=== PATIENT | female | born 1945 | race Caucasian/White ===

== ENCOUNTER 2018-12-29 15:42 | Inpatient (IN) | payer MEDICARE, OTHER ==
[~2018-12-29] VITALS: Ht 172.7 cm; Wt 76.0 kg
--- NOTE | 2018-12-29 20:19 | NUR ---
REPORT RECEIVED FROM PHOTOGRAPH TINTER CHELA. PT ARRIVES VIA STRETCHER WITH DEE DOE. PRN PAIN MEDICATION ADMINISTERED IV. PT REPORTS PAIN 5-7/10 WITH MOVEMENT IN RIGHT HIP. "NOT MUCH PAIN AT REST". PULSES STRONG BLE. SENSATION AND MOVEMENT INTACT. LIMITED MOBILITY RIGHT HIP. PT TRANSERRED TO BED WITH FOUR NURSING STAFF ASSIST. VS COMPLETE. CALL LIGHT IN REACH. ORIENTATION TO ROOM PROVIDED.
--- NOTE | 2018-12-29 20:39 | NUR ---
PHONE CALL TO DR. CLEMENT. TELEPHONE ORDERS RECEIVED, REPEATED BACK. ORDER TO PLACE SAMIR ANGUIANO AT MIDNIGHT, REPEATED BACK.
--- NOTE | 2018-12-29 21:18 | NUR ---
IN PT ROOM FOR ANGUIANO CATHETER INSERTION. EDUCATION PROVIDED. PT DENIES KNOWN ALLERGIES. ANGUIANO PLACED WNL, DRAINING CLEAR YELLOW URINE. PRN MORPHINE ADMINISTERED FOR 6-7/10 HIP PAIN. IVF INFUSING WNL ORDERED. CALL LIGHT IN REACH. LIGHTS OFF IN ROOM. ICE WATER IN REACH.
--- NOTE | 2018-12-29 23:16 | NUR ---
CHECKED ON PT. RESTING IN BED WITH EYES CLOSED, SNORING. BREATHING NON-LABORED. LIGHTS OFF IN ROOM. IVF INFUSING ORDERED. ANGUIANO DRAINING WNL.
--- NOTE | 2018-12-30 01:20 | NUR ---
CALL LIGHT ANSWERED. PRN PAIN MEDICATION ADMINISTERED FOR "5, INCREASING TO 6/10 PAIN" IN RIGHT HIP. ASSESSMENT COMPLETE. CSM INTACT BLE. PT DENIES NEED TO BE REPOSITIONED AT THIS TIME, STATES SHES ABLE TO MOVE A LITTLE. ANGUIANO EMPTIED 1150 MLS. PT NPO AT THIS TIME, EDUCATION PROVIDED, PT VERBALIZES UNDERSTANDING. CALL LIGHT IN REACH.
--- NOTE | 2018-12-30 03:40 | NUR ---
CHECKED ON PT, APPEARS TO BE SLEEPING, RESTING WITH EYES CLOSED, SNORING. BREATHING NON-LABORED. LIGHTS OFF IN ROOM.
--- NOTE | 2018-12-30 05:24 | NUR ---
PT IN BED THROUGHOUT SHIFT. ANGUIANO CATHETER PLACED AND DRAINING QS URINE OUTPUT WNL. IVF INFUISING WNL. PRN MORPHINE FOR PAIN CONTROL. CSM INTACT BLE. RIGHT HIP FRACTURE, INCREASING PAIN WITH MOVEMENT. VSS. NPO SINCE MIDNIGHT.
--- NOTE | 2018-12-30 05:45 | NUR ---
PT RESTING IN BED AWAKE, RATES PAIN 5-6/10 IN RIGHT HIP. PRN PAIN MEDICATION ADMINISTERED. VSS. NEW BAG IVF INFUSING WNL. ANGUIANO EMPTIED. CALL LIGHT IN REACH. NO ADDITIONAL REQUESTS AT THIS TIME.
--- NOTE | 2018-12-30 07:51 | NUR ---
REPORT RECEIVED FROM HANY CAMARILLO. PT AWAKE AND KNITTING. ASKED FOR PAIN MEDICATION. ADMINISTERED 2MG MORPH. PT DENIES FURTHER CONCERNS.
--- NOTE | 2018-12-30 09:27 | HP ---
[facility] [address], [place] [address] Signed ADMISSION DATE: 12/29/2018 HISTORY OF PRESENT ILLNESS: Ms. Nunez is a 73-year-old white female who was doing well until December 29. She apparently was out, walking her dog when the leash and/or the dog sort of got caught up in her legs and she had a ground-level fall. She was unable to ambulate and was brought to the emergency room where x-rays revealed sort of a valgus-impacted subcapital fracture on the right side. She was admitted to the orthopedic service. At the present time, her only other complaint is a small abrasion to the right knee. She denies head injury, neck or low back injury and denies loss of consciousness. PAST MEDICAL HISTORY: Strikingly benign. She says she enjoys excellent general health. MEDICATIONS: She does not take any medications. ALLERGIES: She says she has a sensitivity to barbiturates, but no real allergies. REVIEW OF SYSTEMS: Negative. PHYSICAL EXAMINATION: GENERAL: She is alert, oriented, in no acute distress. HEENT: Head, ears, eyes, nose and throat are unremarkable. There is no evidence of any craniofacial trauma. NECK: Supple. CHEST: Clear. CARDIAC: Reveals a regular rhythm. ABDOMEN: Benign. EXTREMITIES: Right hip is tender in the groin crease. There is no shortening. There is no external rotation. NEUROVASCULAR: Unremarkable and bilaterally symmetrical. IMAGING: Her imaging is reviewed and she has a valgus-impacted subcapital that looks virtually anatomic on the lateral view. PLAN: Electronically Signed By: GAVIN SLAUGHTER MD 12/30/18 0927 PATIENT NAME: BRAD NUNEZ HISTORY AND PHYSICAL DATE OF : 43 REPORT #: [id number] PHYSICIAN: GAVIN SLAUGHTER MD PCP: Murali MCKEON REPORT IS CONFIDENTIAL AND NOT TO BE RELEASED WITHOUT AUTHORIZATION [facility] [address], [place] [address] Signed I have discussed with her the options for treating this including the controversy concerning pin fixation versus primary hip replacement. Given the overall excellent alignment and position, I have suggested that fixation with cannulated screws might be the preferred choice, although we did discuss the fact that there was a risk that the blood supply to the head has been compromised, even though we cannot tell that, and that she may not heal and subsequently require revision to a total hip. She said she understood all the potential risks and complications. We solicited and answered all of her questions and she seems comfortable proceeding with a right hip screw fixation. Gavin Slaughter MD [facility] /[id number] Copies: ~ Electronically Signed By: GAVIN SLAUGHTER MD 12/30/18 0927 PATIENT NAME: BRAD NUNEZ HISTORY AND PHYSICAL DATE OF : 43 REPORT #: [id number] PHYSICIAN: GAVIN SLAUGHTER MD PCP: Murali MCKEON REPORT IS CONFIDENTIAL AND NOT TO BE RELEASED WITHOUT AUTHORIZATION
--- NOTE | 2018-12-30 11:30 | NUR ---
PATIENT AWAITING SURGERY TO REPAIR HIP TODAY. PATIENT REPORTS GOOD SUPPORT WITH FRIENDS. SPOKE WITH PATIENT ABOUT HOSPITAL SWING BED PROGRAM, PATIENT VERBALIZED INTEREST. COPIED PATIENT'S MEDICARE CARD, PROVIDED TO ADMITTING. NO OTHER NEEDS AT THIS TIME.
--- NOTE | 2018-12-30 11:43 | NUR ---
pt called for pain medication rates 4\10.
--- NOTE | 2018-12-30 14:18 | NUR ---
PT NPO FOR SURGERY LATER THIS AFTERNOON. HANY DUMONT REQUESTED TO LET PT REST. WILL FOLLOW NEEDED
--- NOTE | 2018-12-30 14:33 | NUR ---
PT OFF FLOOR WITH HANY JONES FOR SURGERY. TOOK TEETH WITH HER.
--- NOTE | 2018-12-30 14:36 | EKG ---
[facility] [facility] [address] [facility] [place], [place] [address] Signed Normal sinus rhythm Normal ECG No previous ECGs available Confirmed by SOURAV ROBLES DO ([id number]) on 12/30/2018 2:36:23 PM Electronically Signed By: SOURAV ROBLES DO 12/30/18 1436 PATIENT NAME: OSCAR NUNEZGABE Cartwright Electrocardiogram DATE OF : 43 PHYSICIAN: SOURAV ROBLES DO REPORT #: [id number] REPORT IS CONFIDENTIAL AND NOT TO BE RELEASED WITHOUT AUTHORIZATION
--- NOTE | 2018-12-30 16:09 | NUR ---
12/30/18 1609 Roxanna Serrano 1603 PATIENT ARRIVES TO PACU AWAKE BUT DROWSY. PATIENT DENIES PAIN OR NAUSEA. RESP EVEN AND UNLABORED, ON MASK AT 6 LITERS ON ARRIVAL, TURNED OFF, ROOM AIR SATS >95%.
--- NOTE | 2018-12-30 16:48 | NUR ---
PT TO FLOOR WITH HANY DUMONT. PT AWAKE AND TALKING. ON RA SATS BETWEEN 89-91. PLACED ON 1LNC. VS STABLE. STILL NUMB. CAN WIGGLE TOES. DENIES PAIN.
--- NOTE | 2018-12-30 18:08 | NUR ---
PT HAD SURGERY TODAY. BACK TO FLOOR AROUND 1600. VS STABLE. HAS REQUIRED AN OCCASIONAL SMALL AMT O2. NO PAIN REPORTED YET. FRIENDS IN ROOM. HOLD ON NARCS FOR ANESTHESIA.
--- NOTE | 2018-12-30 18:16 | NUR ---
DRESSING CDI. EXPLAINED TO PT THAT SHE HAD 150 ACCOUNTED FOR AT THE END OF SURGERY SO SHE HAD 200 URINE IN THE LAST FOUR HOURS. HER FRIEND HAD ASKED.
[2018-12-30] MEDS ORDERED: VENTOLIN HFA18 GM INH (18:25)
[2018-12-30] MEDS ORDERED: QVAR REDIHALE10.6 GM INH (18:26)
--- NOTE | 2018-12-30 18:26 | NUR ---
MED REC COMPLETE
--- NOTE | 2018-12-30 18:52 | NUR ---
PT ATE HALF OF HER SANDWICH FOR DINNER AND THEN GOT NAUSEOUS. ADMINISTERED ZOFRAN AFTER EMESIS EPISODE.
--- NOTE | 2018-12-30 19:20 | NUR ---
SHIFT REPORT RECIEVED. PATIENT RESTING IN BED. REPORTS BEING TIRED. DENIES PAIN. 2L NC, O2 SAT 93%. PATIENT DENIES ANY NEEDS. CALL LIGHT IN REACH.
--- NOTE | 2018-12-30 21:00 | NUR ---
PATIENT PROVIDED WITH EVENING MEDS. PATIENT SLEEPING SOUNDLY. REQUIRED ENCOURAGEMENT TO STAY AWAKE FOR ASSESSMENT. ORIENTED X4, BUT REPORTS BEING VERY TIRED. DRESSING ON RIGHT HIP CDI. CMS INTACT. ANGUIANO DRIANING CLEAR YELLOW URINE. PATIENT DENIES PAIN. REQUIRING 2L NC, OR SAT 93%. PATIENT DENIES NEEDS. CALL LIGHT IN REACH.
--- NOTE | 2018-12-31 00:05 | NUR ---
ABX STARTED. PATIENT SLEEPING SOUNDLY. RR 20. O2 SAT 87% WITH O2 NC REMOVED. REPLACED NC AND O2 SAT 93% ON 2L. PATIENT DID NOT WAKE WITH RN IN ROOM. CALL LIGHT IN LAP. ALLOWED PATIENT TO REST.
--- NOTE | 2018-12-31 01:52 | NUR ---
SCHEDULED MEDS PROVIDED. PATIENT SLEEPING SOUNDLY, WOKE TO VOICE AND TOUCH. VS STABLE. PATIENT DENIES PAIN. ALLOWED PATIENT TO REST. CALL LIGHT IN REACH.
--- NOTE | 2018-12-31 04:30 | NUR ---
PATIENT'S NC REMOVED, O2 SAT 86% ON RA. REPOSITIONED NC, O2 SAT 93% ON 2L NC. PATIENT DENIES PAIN OR NEEDS. CALL LIGHT IN REACH.
--- NOTE | 2018-12-31 06:30 | NUR ---
PATIENT MORE AWAKE THIS AM. DENIES PAIN. HAS NOT BEEN OUT OF BED. REQUIRING 2L NC. VS STABLE. ANGUIANO IN PLACE, URINE OUTPUT MINIMAL. IV FLUIDS PER ORDER. DRESSING CDI. PATIENT DENIES NEEDS. CALL LIGHT IN REACH.
--- NOTE | 2018-12-31 06:46 | NUR ---
PATIENT VERY DROWSEY THIS SHIFT. NO PRN PAIN MEDS REQUIRED. PAIN 0/10. DRESSING ON RIGHT HIP CDI. PATIENT NOT OUT OF BED POST OP. ANGUIANO IN PLACE. IV FLUIDS. OUTPUT MINIMAL BUT QS FOR WEIGHT. VS STABLE. REQUIRED 2L NC. SCDS IN PLACE.
--- NOTE | 2018-12-31 07:58 | NUR ---
PATIENT SLEEPING. CALL LIGHT WITHIN REACH. NO OTHER NEEDS AT THIS TIME
--- NOTE | 2018-12-31 08:04 | OR ---
[facility] [address] [place], [place] [address] Signed DATE OF OPERATION: 12/30/2018 SURGEON: Sedrick Slaughter MD PREOPERATIVE DIAGNOSIS: Valgus impacted subcapital fracture, right hip. POSTOPERATIVE DIAGNOSIS: Valgus impacted subcapital fracture, right hip. PROCEDURE: Closed reduction and percutaneous screw fixation. ANESTHESIA: Spinal. SPECIMENS AND COMPLICATIONS: There were no specimens or complications. BLOOD LOSS: Minimal. There were no intraoperative complications. WHAT WAS DONE: The patient was taken to the operating room. After anesthesia was induced and airway secured, the patient was positioned prepped and draped in a routine sterile fashion. The fracture was reduced with some longitudinal traction and internal rotation giving us an anatomic alignment on both the AP and lateral views. We then made a 2-inch incision over the lateral aspect of the base of the greater trochanter. Under biplanar fluoroscopic control, we inserted a three 8-inch terminally threaded guide pins in a spread arrangement aiming primarily for the calcar, posteriorly in the head and one central screw. We then replaced the guide pins with screws and we are happy with the alignment and the position of the construct. The wound was gently irrigated and closed in a standard fashion. Sterile dressings were applied and the patient was awakened, taken to recovery room, where she arrived in stable condition. Counts were correct and antibiotic protocols were followed. Sedrick Slaughter MD Electronically Signed By: SEDRICK SLAUGHTER MD 12/31/18 0804 PATIENT NAME: BRAD NUNEZ OPERATIVE REPORT DATE OF : 43 REPORT #: [id number] PHYSICIAN: SEDRICK SLAUGHTER MD PCP: Murali MCKEON REPORT IS CONFIDENTIAL AND NOT TO BE RELEASED WITHOUT AUTHORIZATION [address], [place] [address] Signed [facility] /[id number] Copies: ~ Electronically Signed By: SEDRICK SLAUGHTER MD 12/31/18 0804 PATIENT NAME: BRAD NUNEZ OPERATIVE REPORT DATE OF : 43 REPORT #: [id number] PHYSICIAN: SEDRICK SLAUGHTER MD PCP: Murali MCKEON REPORT IS CONFIDENTIAL AND NOT TO BE RELEASED WITHOUT AUTHORIZATION
--- NOTE | 2018-12-31 09:04 | NUR ---
PT RESTING IN SEMI FOWELERS POSITION IN BED WATCHING TV. AM MEDICATIONS ADMINISTERED - SEE EMAR. CALL LIGHT AND H2O IN REACH. PT APPEARS TO BE IN NO ACUTE DISTRESS. AM ASSESSMENT COMPLETED. ICE PACK TO RIGHT LATERAL LEG AND FRESH ICE WATER PROVIDED PER PT REQUEST. NO FRTHER NEEDS/CONCERNS VOICED.
--- NOTE | 2018-12-31 09:28 | NUR ---
PATIENT RESTING IN BED. FAMILY IN ROOM. VITAL SIGNS AND I&O DONE. LOW BLOOD PRESSURE. LOW OUTPUT AND DARK. RN NOTIFIED. CALL LIGHT WITHIN REACH. NO OTHER NEEDS AT THIS TIME
--- NOTE | 2018-12-31 10:45 | NUR ---
PT SITTING UP AT SIDE OF BED, IV BEEPING, PT TO WALK WITH PT AND SHOWER AFTER WITH DEE GORDON. PT AGREES TO USE CALL LIGHT WHEN FINISHED SHOWERING. PT IN TO ASSIST PT. NO NEEDS/CONCERNS VOICED. CALL LIGHT AND H2O IN REACH. PT CURRENTLY SATTING 94% ON RA.
--- NOTE | 2018-12-31 11:00 | NUR ---
SPOKE WITH PATIENT IN ROOM. PATIENT STATES SHE LIVES ALONE. HAS SOME NEIGHBORS THAT SHE IS CLOSE WITH. STATES ONE NEIGHBOR MIGHT HAVE HER COME TO HER HOUSE AND HELP HER FOR A BIT WHEN SHE IS UP AND AROUND MORE. WE DISCUSSED OPTIONS AT DISCHARGE. SHE WOULD LIKE TO TRY STAYING SWINGBED/TRANSITIONAL CARE UNTIL SHE CAN RETURN HOME OR WITH HER NEIGHBORS HELP. SHE DOES HAVE STAIRS INTO THE HOME AT BOTH PLACES. PATIENT NORMALLY HAS NO AMBULATION ISSUES AND LIVES INDEPENDENTLY. QUESTIONS ANSWERED. WILL CONTINUE TO FOLLOW.
--- NOTE | 2018-12-31 11:21 | NUR ---
PT FINISHED WITH WORKING WITH PT AND IS NOW OUT OF SHOWER WITH ASSISTANCE FROM DEE GORDON. NEW BAG IV IV FLUIDS INFUSING. CALL LIGHT AND H2O IN REACH. PT DENIES SOB, PAIN OR NAUSEA. ROOM AIR SAT 94%. PT REQUESTED AND RECEIVED NEW EYE MASK. PT DENIES FURTHER NEEDS/CONCERNS.
--- NOTE | 2018-12-31 11:33 | NUR ---
PATIENT WALKING IN THE HALLWAY WITH PHYSICAL THERAPIST. LINENS CHANGED. PATIENT BACKS TO THE BATHROOM TO TAKE A SHOWER. IV COVERED. PATIENT TAKES A SHOWER. ONE PERSON ASSISTING. PATIENT USING A CLEAN GOWN. PATIENT BACKS TO BED. WARM BLANKET PROVIDED. CALL LIGHT WITHIN REACH. NO OTHER NEEDS AT THIS TIME
--- NOTE | 2018-12-31 13:48 | NUR ---
PATIENT RESTING IN BED. VITAL SIGNS AND I&O DONE. LOW DYASTOLIC BLOOD PRESSURE. PATIENT REFUSED TO ORDER LUNCH. RN NOTIFIED. CALL LIGHT WITHIN REACH. NO OTHER NEEDS AT THIS TIME
--- NOTE | 2018-12-31 14:40 | NUR ---
PT RESTING IN SEMI FOWLERS POSITION ALERT AND ORIENTED, ASSESSMENT COMPLETED. PT STATES RIGHT HIP PAIN IS TOLERABLE AT THIS TIME. CALL LIGHT AND H2O IN REACH.
--- NOTE | 2018-12-31 17:38 | NUR ---
PATIENT SITTING UP IN BED. VITAL SIGNS AND I&O DONE. ICE WATER GIVEN. CALL LIGHT WITHIN REACH. NO OTHER NEEDS AT THIS TIME
--- NOTE | 2018-12-31 18:05 | NUR ---
PT RESTING IN SEMI FOWLERES POSITION BED EYES CLOSED AND RESPIRATIONS EVEN AND UNLABORED. CALL LIGHT AND H2O IN REACH. PT APPEARS TO BE SLEEPING COMFORTABLY. IV FLUIDS CONTINUE TO INFUSE PRESCRIBED, IV SITE WNL. RR18.
--- NOTE | 2018-12-31 19:19 | NUR ---
CHARGE NURSE REPORT RECEIVED. PT WITH NO NEEDS AT THIS TIME.
--- NOTE | 2018-12-31 19:30 | NUR ---
REPORT RECEIVED, PT RESTING IN BED, EYES CLOSED, BREATHS EVEN, O2 SAT 93%, CALL LIGHT WITHIN REACH. ON RA. IV FLUIDS INFUSING PER EMAR WNL.
--- NOTE | 2018-12-31 19:32 | NUR ---
SCHEDULED TYLENOL GIVEN, PT DROWSY FROM SLEEPING, O2 SAT 94% ON RA, HR 80'S, IV FLUIDS INFUSING PER EMAR WNL, ANGUIANO CATH DRAINING WNL, NO REQUESTS AT THIS TIME, CALL LIGHT WITHIN REACH.
--- NOTE | 2018-12-31 20:47 | NUR ---
EVENING MEDS ADMINISTERED, PT RESTING IN BED, VSS, NO REQUESTS AT THIS TIME, PT'S LS CLEAR, ON RA, O2 SAT 93%, HR 60'S, ANGUIANO CATH DRAINING WNL, IV SL, DRESSING TO RIGHT HIP C/D/I, PT DENIES SIGNIFICANT PAIN. CALL LIGHT WITHIN REACH. FALL PRECAUTIONS IN PLACE.
--- NOTE | 2018-12-31 22:28 | NUR ---
PT RESTING IN BED, EYES CLOSED, BREATHS EVEN, UNLABORED, NO REQUESTS AT THIS TIME, CALL LIGHT WITHIN REACH. ON RA, O2 SAT 91%, HR 60'S.
--- NOTE | 2019-01-01 | NUR ---
PT NOTED TO DESATURATE TO 86% WHILES SLEEPING, PT PLACED ON 1LNC, O2 SAT NOW 94%, PT TOLERATING WELL, NO C/O SOB/CP, NO NEEDS AT THIS TIME, CALL LIGHT WITHIN REACH. SCD'S ON, FALL PRECAUTIONS IN PLACE.
--- NOTE | 2019-01-01 01:05 | NUR ---
CALL LIGHT ANSWERED, PT C/O PAIN RELATED TO HER HIP, PT REQUESTING PRN PAIN MEDICATION, PRN PO PAIN MEDICATION GIVEN PER EMAR. PT ALSO GIVEN WARM BLANKET, NO FURTHER NEEDS AT THIS TIME, PT REMAINS ON CPOX, 1LNC ON WHILE PT SLEEPING, O2 SAT >90, CALL LIGHT WITHIN REACH.
--- NOTE | 2019-01-01 03:00 | NUR ---
PT RESTING IN BED, EYES CLOSED, BREATHS EVEN, UNLABORED, NO REQUESTS AT THIS TIME, CALL LIGHT WITHIN REACH. FALL PRECAUTIONS IN PLACE.
--- NOTE | 2019-01-01 04:50 | NUR ---
PT AOX4, APPROPRIATE, PT HAS BEEN ABLE TO SLEEP MOST OF THIS SHIFT, PT RECEIVED PRN PAIN MEDICATION X1 THIS SHIST, SCHEDULED TYLENOL GIVEN PER EMAR. NO C/O NAUSEA THIS SHIFT. IV SL, SCD'S ON, RIGHT HIP DRESSING C/D/I, PT USES CALL LIGHT APPROPRIATELY, ANGUIANO CATH DRAINING WNL, UO QS, VSS,
--- NOTE | 2019-01-01 07:15 | NUR ---
PT RESTING SUPINE IN BED, EYES CLOSED AND RESPIRATIONS EVEN AND UNLABORED AT 16 ON 1LPNC. PT APPEARS TO BE SLEEPING COMFORTABLY. CALL LIGHT AND H2O IN REACH. BEDSIDE REPORT RECEIVED FROM HANY LOAIZA.
--- NOTE | 2019-01-01 08:05 | NUR ---
PT SITTING UP IN BED EATING BREAKFAST. PT DENIES SOB, NAUSEA BUT REPORTS INCREASED 4/10 PAIN TO RIGHT HIP. PT REQUESTED AND RECEIVED PRN PO TRAMADOL -SEE EMAR. CALL LIGHT AND H2O IN REACH. PT DENIES FURTHER NEEDS/CONCERNS. 1LPNC TITRATED OFF AND PT SATTING IN HIGH 90'S ON RA. RR 16.
--- NOTE | 2019-01-01 12:00 | NUR ---
PT SITTING UP IN CHAIR REPORTS PAIN OF OF 4/10 TO RIGHT HIP. PRN PO OPIOD ADMINISTERED PER PT REQUEST. PT EATING LUNCH AND DENIES NAUSEA, SOB OR OTHER SYMPTOMS. CALL LIGHT AND FRESH H2O IN REACH.
--- NOTE | 2019-01-01 14:20 | NUR ---
PT UP TO RESTROOM WITH SBA AND BACK TO CHAIR. ASSESSMENT COMPLETED, SCHEDULED TYLENOL ADMINISTERED -SEE EMAR. FRESH H2O AND CALL LIGHT IN REACH. PT DENIES FURHTER NEEDS/CONCERNS.
--- NOTE | 2019-01-01 15:49 | NUR ---
ASKED PATIENT IF SHE WOULD LIKE TO TAKE A SHOWER TODAY AND SHE NO BECAUSE HE TOOK ONE YESTERDAY. ALSO SHE HAD A VISITOR COME BY SHE WAS SITTING UP IN HER CHAIR CROCHEING OR KNITTING WITH HER VISITOR.
--- NOTE | 2019-01-01 19:39 | NUR ---
AWAKES EASILY, COOP WITH ASSESSMENT, SLIGHT CRACKLES UPPER LUNGS, CLEARED WITH CDB. DRESSING R HIP COVERED WITH OPSITE, TENDER AREA, 1+ EDEMA. SCRAPED AREA BELOW R KNEE HEALING. GOOD CMS. UP TO BR WITH 1PA AND FWW, VOIDED, BACK TO BED. SL INTACT. 3/3 R HIP PAIN, MEDICATED WITH SCHEDULED TYLENOL
--- NOTE | 2019-01-01 19:50 | NUR ---
on return to bed, pt desatted to 86% room air, after a few minutes of cdb and working with IS went up to 88-89%. Placed on O2 1L NC, sats at 94-95%. Pt agrees to wear O2 at this time, no sob noted on return, denies sob on walking, "People have told me I have sleep apnea, but I have not been diagnosed". Comfortable, hob elevated.
--- NOTE | 2019-01-02 00:02 | NUR ---
MEDICATED WITH ULTRAM PER C/O H/A. ICE PACK TO BACK OF NECK GIVEN ON REQUEST. NO FURTHER C/O LIGHTHEADNES, O2 INPLACE AT THIS TIME. PLEASANT AND COOP, NO C/O R HIP PAIN. SCDS, HEEL PROTECTORS INPLACE, DRESSING CDI
--- NOTE | 2019-01-02 05:10 | NUR ---
PT CURRENTLY RESTING, ON 1L NC O2. PT DESATTED TO THE 86% AFTER WALKING FROM BATHROOM TO BAD. TOLERATING WELL. R HIP DRESSING CDI, SLIGHT 1+ EDEMA TO AREA. GOOD CMS R LEG. PT UP W 1PA/FWW. HAS BEEN MEDICATED WITH TYLENOL SCHEDULE, 0200 DOSAGE HELD PT WAS SLEEPING. MEDICATED WITH ULTRAM X1 PER H/A, ICE TO BACK OF NECK WITH GOOD PAIN RELIEF. CALL LIGHT AND FLUDIS AT BEDSIDE
--- NOTE | 2019-01-02 06:02 | NUR ---
ASSISTED PT TO THE RESTROOM SBA WITH FWW. ALSO MEDICATED PT FOR PAIN PER HER REQUEST. SHE HAS FRESH WATER AT BEDSIDE AND DENIES FURTHER NEEDS. CALL LIGHT IS WITHIN REACH.
--- NOTE | 2019-01-02 06:23 | NUR ---
RESTING, EYES CLOSED, NO DISTRESS, CALL LIGHT AND FLUIDS AT BEDSIDE
--- NOTE | 2019-01-02 07:27 | NUR ---
REPORT RECEIVED FROM GAS CUTTER RN. PT IS IN BED. CALL LIGHT IN REACH. RESPIRATIONS EQUAL AND NONLABORED.
--- NOTE | 2019-01-02 07:30 | NUR ---
CALL LIGHT ANSWERED. PATIENT IS GOING TO USE BATHROOM. PATIENT USES A WALKER. ONE PERSON ASSISTING. PATIENT'S BREAKFAST ORDERED. CALL LIGHT WITHIN REACH. NO OTHER NEEDS AT THIS TIME
--- NOTE | 2019-01-02 07:35 | NUR ---
PATIENT RESTING IN BED. PATIENT REFUSED TO TAKE A SHOWER TODAY. CALL LIGHT WITHIN REACH. NO OTHER NEEDS AT THIS TIME
--- NOTE | 2019-01-02 08:37 | NUR ---
PATIENT SITTING UP IN CHAIR. SETS UP BATHROOM FOR SHOWER. IV WRAPPED. PATIENT GOES TO THE BATHROOM TO TAKE A SHOWER. PATIENT USES A WALKER. ONE PERSON ASSISITING. PATIENT USING A CLEAN GOWN. PATIENT BACKS TO CHAIR. LINENS CHANGED. ICE WATER GIVEN. CALL LIGHT WITHIN REACH. NO OTHER NEEDS AT THIS TIME
--- NOTE | 2019-01-02 09:15 | NUR ---
SPOKE WITH PATIENT WHILE SHE WAS WORKING WITH PT. SHE FEELS SHE IS DOING "WELL". PATIENT STATES HER NEIGHBOR IS WILLING TO HELP HER SOME AT DISCHARGE, BUT THAT SHE STILL FEELS SHE MAY NEED SOME EXTRA TIME BEFORE GOING HOME ALONE. PATIENT BECAME LIGHTHEADED WHILE WE WERE TALKING AND HAD TO LAY DOWN, STAFF IN TO CHECK HER VS.
--- NOTE | 2019-01-02 09:46 | NUR ---
PATIENT SITTING UP IN CHAIR. VITAL SIGNS AND I&O DONE. CALL LIGHT WITHIN REACH. NO OTHER NEEDS AT THIS TIME
--- NOTE | 2019-01-02 12:20 | NUR ---
PT SITTING IN CHAIR, EATING LUNCH. SHE HAS HAD P.T., SEEMS TO BE PROGRESSING. POSITIVE ATTITUDE, WOULD LIKE TO GET HOME TO HER CATS. EXTENDED A BLESSING, WILL FOLLOW NEEDED
--- NOTE | 2019-01-02 13:59 | NUR ---
PT DISCHARGED TO SWING BED.
== END 2019-01-02 12:48 | disposition swing bed (61) | DRG 482 ==
LOC: ED 15:42 → MS 15:44 → ED 15:44 → MS 15:44
PROVIDERS: ADMIT Orthopaedic Surgery
PROC: 0QS704Z Reposition Left Upper Femur with Internal Fixation Device, Open Approach (ICD-10-PCS; principal; 2018-12-30 15:30)
DX: S72.011A Unspecified intracapsular fracture of right femur, initial encounter for closed fracture (principal); R42 Dizziness and giddiness; E55.9 Vitamin D deficiency, unspecified; Z87.01 Personal history of pneumonia (recurrent); Z88.8 Allergy status to other drugs, medicaments and biological substances; W18.30XA Fall on same level, unspecified, initial encounter; Y93.K1 Activity, walking an animal
CPT/HCPCS: 01210; 36415; 71045; 72170; 73501; 73502; 80048; 80053; 82306; 85025; 85610; 85730; 93005; 93010; 94762; 97110; 97116; 97161; 97165; 97530; C1713; J0690; J1885; J2250; J2270; J2274; J2405; J2704; J3010; J7120

== ENCOUNTER 2025-02-02 03:21 | Emergency (ER) | payer MEDICARE, OTHER ==
[~2025-02-02] VITALS: Ht 172.7 cm; Wt 72.2 kg
[~2025-02-02 03:21] MED LIST: QVAR REDIHALE10.6 GM INH; VENTOLIN HFA18 GM INH; XARELTO10 MG PO
[2025-02-02] MEDS ORDERED: SODIUM CHLORIDE 0.9% 500 ML IV PRN (03:30)
[2025-02-02] MEDS ORDERED: DIPHENOXYLATE/ATROPINE 1 EA TAB PO ONE (03:30)
[2025-02-02 03:46] LABS: BASOPHILS 0.2 % (0.1-1.2); EOSINOPHILS 0.6 % (0.7-5.8); LYMPHOCYTES 5.1 % (19.3-51.7); MCH 31.4 PG (25.6-32.2); MCHC 33.9 g/dL (32.2-35.5); MCV 92.6 fL (79.4-94.8); MONOCYTES 5.1 % (4.7-12.5); NEUTROPHILS 88.5 % (34.0-71.1); RBC 4.46 M/uL (3.93-5.22)
[2025-02-02 04:04] LABS: ALT (SGPT) 20.0 U/L (14-59); AST (SGOT) 14.0 U/L (15-37); GLOMERULAR FILTRATION RATE,EST 70.0 mL/min (>60); PROTEIN, TOTAL 7.9 g/dL (6.4-8.2); UREA NITROGEN 28.0 mg/dL (7-18)
[2025-02-02 04:13] LABS: INFLUENZA B NAA NEGATIVE (NEGATIVE); RESPIRATORY SYNCYTIAL VIR NAA NEGATIVE (NEGATIVE)
[2025-02-02] MEDS ORDERED: LOMOTIL TABLET1 EACH PO (06:20)
[2025-02-02] MEDS ORDERED: ONDANSETRON ODT8 MG PO (06:20)
[2025-02-02] MEDS ORDERED: ONDANSETRON 4 MG HOME.PACK SL ONE (06:30)
[2025-02-02 06:34] VITALS: BP 123/54
--- NOTE | 2025-02-02 12:20 | EKG ---
[facility] [address] [facility] [place] [address] Signed Normal sinus rhythm Nonspecific T wave abnormality Abnormal ECG When compared with ECG of 29-DEC-2018 18:38, No significant change was found Confirmed by Rocael Herrera MD ([id number]) on 02/02/2025 12:19:57 PM Electronically Signed By: ROCAEL HERRERA MD 02/02/25 1220 PATIENT NAME: BRAD NUNEZ FLORY Electrocardiogram DATE OF : 43 PHYSICIAN: ROCAEL HERRERA MD REPORT #: [id number] REPORT IS CONFIDENTIAL AND NOT TO BE RELEASED WITHOUT AUTHORIZATION
== END 2025-02-02 06:35 | disposition home or self-care (01) ==
LOC: ED 03:21
PROVIDERS: Family Medicine
DX: K52.9 Noninfective gastroenteritis and colitis, unspecified (principal); Z87.891 Personal history of nicotine dependence; Z88.8 Allergy status to other drugs, medicaments and biological substances
CPT/HCPCS: 36415; 70450; 80053; 83735; 83880; 84484; 85025; 87502; 93005; 93010; 96374; 99284-25; A9270; J2405; J7040; U0002